=== PATIENT | female | born 1975 | race Caucasian/White ===

== ENCOUNTER 2025-04-02 06:44 | Day surgery (SDC) | payer BC ==
[2025-04-01 09:38] VITALS: BMI 41.0
[2025-04-02] MEDS ORDERED: PROPOFOL 40 ML ONE (07:24)
[2025-04-02] MEDS ORDERED: Lidocaine 1% PF 5 ML VIAL ONE (07:24)
[2025-04-02] MEDS ORDERED: CEFAZOLIN 2 GM VIAL ONE (07:55)
[2025-04-02] MEDS ORDERED: PHENYLEPHRINE-NS 100 MCG/ML 10 ML SYRINGE ONE (09:07)
[2025-04-02] MEDS ORDERED: Phenylephrine 40 MG/NS 250 ML 250 ML ONE (09:37)
[2025-04-02] MEDS ORDERED: oxyCODONE 5 MG TAB ONE (12:27)
[2025-04-02] MEDS ORDERED: Ondansetron PF 4 MG/2 ML Vial ONE (12:30)
== END 2025-04-02 13:15 | disposition home or self-care (01) ==
LOC: CSHSDC 06:44
PROVIDERS: ATTEND Podiatrist Foot & Ankle Surgery
PROC: 0QSN04Z Reposition Right Metatarsal with Internal Fixation Device, Open Approach (ICD-10-PCS; principal; 2025-04-02)
PROC: 0QBN0ZZ Excision of Right Metatarsal, Open Approach (ICD-10-PCS; principal; 2025-04-02)
DX: M21.611 Bunion of right foot (principal); M20.41 Other hammer toe(s) (acquired), right foot; M77.41 Metatarsalgia, right foot; M21.621 Bunionette of right foot; I10 Essential (primary) hypertension; J30.9 Allergic rhinitis, unspecified; F41.9 Anxiety disorder, unspecified; D64.9 Anemia, unspecified; Z90.49 Acquired absence of other specified parts of digestive tract
CPT/HCPCS: C1713; C1769; C1776; J0665; J1100; J2250; J2405; J2704